=== PATIENT | female | born 2000 | race Hispanic/Latino ===

== ENCOUNTER 2020-06-21 18:28 | Emergency (ER) | payer BC, SELFPAY ==
--- NOTE | 2020-06-21 20:22 | ER ---
Nurse's Notes [facility] Name: Etta Guillermo Age: 20 yrs Sex: Female : 2000 Arrival Date: 06/21/2020 Time: 18:32 Bed 20 Private MD: Diagnosis: Other ovarian cysts Presentation: 06/21 18:46 Chief complaint: Patient states: abd pain/pelvic pain since last night, denies N/V or em fever, reports clear discharge. Coronavirus screen: Client denies travel out of the [place] in the last 14 days. Ebola Screen: Patient negative for fever greater than or equal to 101.5 degrees Fahrenheit, and additional compatible Ebola Virus Disease symptoms Patient denies exposure to infectious person. Patient denies travel to an Ebola-affected area in the 21 days before illness onset. No symptoms or risks identified at this time. Initial Sepsis Screen: Does the patient meet any 2 criteria? No. Patient's initial sepsis screen is negative. Does the patient have a suspected source of infection? No. Patient's initial sepsis screen is negative. Risk Assessment: Do you want to hurt yourself or someone else? Patient reports no desire to harm self or others. Onset of symptoms was June 20, 2020. 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 - Social history:: Smoking status: Patient denies any tobacco usage or history of. Screenin:45 Abuse screen: Denies threats or abuse. Denies injuries from another. Nutritional aj1 screening: No deficits noted. Tuberculosis screening: No symptoms or risk factors identified. Fall Risk None identified. Assessment: 19:45 General: Appears in no apparent distress. uncomfortable, Behavior is calm, cooperative, aj1 appropriate for age. Pain: Complains of pain in suprapubic area and left inguinal area. Neuro: Level of Consciousness is awake, alert, obeys commands, Oriented to person, place, time, situation. Cardiovascular: Patient's skin is warm and dry. Respiratory: Airway is patent Respiratory effort is even, unlabored, Respiratory pattern is regular, symmetrical. GI: Bowel sounds present X 4 quads. Abd is soft and non tender X 4 quads. Patient currently denies diarrhea, nausea, vomiting. : Reports discharge, clear pain in suprapubic area. EENT: No signs and/or symptoms were reported regarding the EENT system. Derm: No signs and/or symptoms reported regarding the dermatologic system. Skin is pink, warm \T\ dry. normal. Musculoskeletal: No signs and/or symptoms reported regarding the musculoskeletal system. Circulation, motion, and sensation intact. 20:45 Reassessment: Patient appears in no apparent distress at this time. No changes from aj1 previously documented assessment. Patient and/or family updated on plan of care and expected duration. Pain level reassessed. Patient is alert, oriented x 3, equal unlabored respirations, skin warm/dry/pink. Vital Signs: 18:46 BP 142 / 83; Pulse 86; Resp 19; Temp 98.3; Pulse Ox 98% on R/A; Weight 121.11 kg; sg Height 5 ft. 6 in. (167.64 cm); Pain 9/10; 18:46 Body Mass Index 43.09 (121.11 kg, 167.64 cm) sg ED Course: 18:32 Patient arrived in ED. ag5 18:49 Triage completed. em 18:49 Arm band placed on. em 18:55 Lashanda Lema [facility]C [facility]. kb 18:55 Greg Isaacs MD is Attending Physician. kb 19:06 Shirley Schaeffer, MAIN is Primary Nurse. aj1 19:45 Patient has correct armband on for positive identification. Bed in low position. Call aj1 light in reach. Side rails up X 1. 19:45 No provider procedures requiring assistance completed. aj1 20:33 US Transvaginal Study (Probe) In Process Unspecified. EDMS 21:05 Patient did not have IV access during this emergency room visit. aj1 Administered Medications: No medications were administered Outcome: 20:21 Discharge ordered by . kb 21:06 Discharged to home ambulatory. aj1 21:06 Condition: good 21:06 Discharge instructions given to patient, Instructed on discharge instructions, follow up and referral plans. medication usage, Demonstrated understanding of instructions, follow-up care, medications, Prescriptions given X 1. 21:06 Patient left the ED. aj1 Signatures: Dispatcher [employer] Lashanda Gordon, ISAMAR AGRICULTURE TEACHER-Shirley Lundberg RN RN aj1 Ben Greenberg RN RN sg Hoang Torres RN RN em Evelyn Smith ag5 Corrections: (The following items were deleted from the chart) 18:50 18:49 PMHx: None; em em 20:18 18:46 BP 142 / 83; Pulse 86bpm; Resp 19bpm; Pulse Ox 98.4% RA; Temp 98.3F; 121.11 kg; sg Height 5 ft. 6 in.; BMI: 43.0; Pain 9/10; em
--- NOTE | 2020-06-21 20:22 | EDPHYS ---
Physician Documentation [facility] Name: Etta Guillermo Age: 20 yrs Sex: Female : 2000 Arrival Date: 06/21/2020 Time: 18:32 Bed 20 Private MD: ED Physician Greg Isaacs HPI: 06/21 20:18 This 20 yrs old Female presents to ER via Ambulatory with complaints of Pelvic kb Pain, Abdominal Pain. 20:18 The patient presents with pelvic pain, that is located in/on the left inguinal area, kb vaginal bleeding that is spotting, vaginal discharge, that is clear discharge. Onset: The symptoms/episode began/occurred today. Modifying factors: The symptoms are alleviated by nothing, the symptoms are aggravated by nothing. Associated signs and symptoms: Pertinent positives: vaginal bleeding, vaginal discharge. Severity of symptoms: At their worst the symptoms were mild, in the emergency department the symptoms are unchanged. The patient has experienced similar episodes in the past, a few times. The patient has not recently seen a physician. Pt reports pelvic pain on left side and clear discharge with slight spotting. States she has had similar pain before when she ruptured a cyst. 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 - Social history:: Smoking status: Patient denies any tobacco usage or history of. ROS: 20:16 Constitutional: Negative for fever, chills, and weight loss, Cardiovascular: Negative kb for chest pain, palpitations, and edema, Respiratory: Negative for shortness of breath, cough, wheezing, and pleuritic chest pain, MS/Extremity: Negative for injury and deformity, Skin: Negative for injury, rash, and discoloration, Neuro: Negative for headache, weakness, numbness, tingling, and seizure. 20:16 : Positive for pelvic pain, vaginal discharge. Exam: 20:16 Constitutional: This is a well developed, well nourished patient who is awake, alert, kb and in no acute distress. Head/Face: Normocephalic, atraumatic. Chest/axilla: Normal chest wall appearance and motion. Nontender with no deformity. No lesions are appreciated. Cardiovascular: Regular rate and rhythm with a normal S1 and S2. No gallops, murmurs, or rubs. Normal PMI, no JVD. No pulse deficits. Respiratory: Lungs have equal breath sounds bilaterally, clear to auscultation and percussion. No rales, rhonchi or wheezes noted. No increased work of breathing, no retractions or nasal flaring. Abdomen/GI: Soft, non-tender, with normal bowel sounds. No distension or tympany. No guarding or rebound. No evidence of tenderness throughout. Skin: Warm, dry with normal turgor. Normal color with no rashes, no lesions, and no evidence of cellulitis. MS/ Extremity: Pulses equal, no cyanosis. Neurovascular intact. Full, normal range of motion. Neuro: Awake and alert, GCS 15, oriented to person, place, time, and situation. Cranial nerves II-XII grossly intact. Motor strength 5/5 in all extremities. Sensory grossly intact. Cerebellar exam normal. Normal gait. 20:16 Abdomen/GI: tenderness to left pelvic area. Vital Signs: 18:46 BP 142 / 83; Pulse 86; Resp 19; Temp 98.3; Pulse Ox 98% on R/A; Weight 121.11 kg; sg Height 5 ft. 6 in. (167.64 cm); Pain 9/10; 18:46 Body Mass Index 43.09 (121.11 kg, 167.64 cm) sg MDM: 19:08 Patient medically screened. kb 20:17 Data reviewed: vital signs, nurses notes. Data interpreted: Pulse oximetry: on room air kb is 98 %. Interpretation: normal. 20:21 Counseling: I had a detailed discussion with the patient and/or guardian regarding: the kb historical points, exam findings, and any diagnostic results supporting the discharge/admit diagnosis, lab results, radiology results, the need for outpatient follow up, an OB/Gyne specialist, to return to the emergency department if symptoms worsen or persist or if there are any questions or concerns that arise at home. 06/21 18:55 Order name: Urine Microscopic Only kb 06/21 18:55 Order name: Urine Test (obtain specimen); Complete Time: 19:23 kb 06/21 19:24 Order name: Urine Dipstick--Ancillary (enter results) mw2 06/21 19:24 Order name: Urine --Ancillary (enter results) mw2 06/21 19:25 Order name: US Transvaginal Study (Probe); Complete Time: 20:50 kb 06/21 18:55 Order name: Urine Dipstick-Ancillary (obtain specimen); Complete Time: 19:23 kb Administered Medications: No medications were administered Disposition: 06/22 09:30 Co-signature as Attending Physician, Greg Isaacs MD I agree with the assessment and carissa plan of care. Disposition: 06/21/20 20:21 Discharged to Home. Impression: Other ovarian cysts. - Condition is Stable. - Discharge Instructions: Ovarian Cyst, [id number]. - Prescriptions for Ibuprofen 800 mg Oral Tablet - take 1 tablet by ORAL route every 8 hours As needed take with food; 30 tablet. - Medication Reconciliation Form, Thank You Letter, Antibiotic Education, Prescription Opioid Use form. - Follow up: Emergency Department; When: As needed; Reason: Worsening of condition. Follow up: Private Physician; When: 2 - 3 days; Reason: Recheck today's complaints, Continuance of care, Re-evaluation by your physician. Signatures: Dispatcher [employer] EDMS Lashanda Lema, TARGET DEVELOPER-C TARGET DEVELOPER-Shirley Lundberg RN RN aj1 Greg Isaacs MD MD cha Munoz, Edgar, RN RN em Corrections: (The following items were deleted from the chart) 06/21 18:50 18:49 PMHx: None; em em 21:06 20:21 06/21/2020 20:21 Discharged to Home. Impression: Other ovarian cysts. Condition aj1 is Stable. Forms are Medication Reconciliation Form, Thank You Letter, Antibiotic Education, Prescription Opioid Use. Follow up: Emergency Department; When: As needed; Reason: Worsening of condition. Follow up: Private Physician; When: 2 - 3 days; Reason: Recheck today's complaints, Continuance of care, Re-evaluation by your physician. kb
--- NOTE | 2020-06-21 20:47 | RAD REPORT ---
EXAM DESCRIPTION: US - Transvaginal Study Probe - 06/21/2020 8:32 pm CLINICAL HISTORY: Pelvic pain COMPARISON: none FINDINGS: The uterus measures 9 x 4 x 5cm. A 1.9 centimeter isoechoic structure within the uterine b sarah may represent a fibroid. . Endometrial stripe measures 14 millimeters The ovaries are normal in size and echotexture. Right ovary contains multiple small follicles. 2.6 centimeter left ovarian cyst. The right and left adnexa unremarkable No significant free fluid is seen. IMPRESSION: 2.6 centimeter left ovarian cyst without significant free fluid Probable 1.9 centimeter uterine fibroid
[2020-06-21 21:08] LABS: Urine Blood NEGATIVE (NEG); Urine Glucose NEGATIVE (NEG); Urine Protein 1+ (NEG); Urine Specific Gravity >1.030 (1.005-1.030); Urine pH 5.5 (5.0-7.0)
[2020-06-23 06:49] VITALS: BP 142/83; TEMP 98.3; O2SAT 98
== END 2020-06-21 21:06 | disposition home or self-care (01) ==
LOC: ER 18:28
DX: N83.299 Other ovarian cyst, unspecified side (principal); Z91.018 Allergy to other foods
CPT/HCPCS: 76830; 81003; 81025; 99283